=== PATIENT | female | born 2005 | race African-American/Black ===

== ENCOUNTER 2023-04-25 19:12 | Observation (INO) ==
[2023-04-25 19:48] VITALS: TEMP 98.1
--- NOTE | 2023-04-25 20:32 | Emergency Department Note ---
Impression & Plan Intentional overdose, Suicide attempt, SSRI overdose ED Provider Note HISTORY OF PRESENT ILLNESS: Patient is a 18-year-old female presenting after an intentional overdose in a suicide attempt. Patient reports that she took "about a half a bottle of Lexapro and hydroxyzine" around 1800 today. She states the medications are prescribed to her. On chart review, the patient is prescribed Lexapro 20 mg and hydroxyzine 50 mg. Patient is unsure of the quantity of pills, but states that the bottle was about group home filled. Denies any other coingestions. She did vomit prior to arrival in the ER. She states multiple social stressors including stressors at school that prompted her to try to end her life. Denies any auditory visual hallucinations. ROS: as above PHYSICAL EXAM: Constitutional: Patient appears in no acute distress. HENT: Head: Normocephalic and atraumatic. Eyes: EOMI, PERRL Mouth/Throat: Mucous membranes moist. Neck: Trachea midline. Neck supple. Cardiovascular: RRR, No murmurs, rubs or gallops. Intact distal pulses. Pulmonary/Chest: No respiratory distress. Breath sounds clear and equal bilaterally. No wheezes or rales. Abdominal: Abdomen soft, no tenderness, rebound or guarding. Musculoskeletal: No edema, tenderness or deformity noted. Skin: Warm and dry. No rash, erythema, pallor or cyanosis Psychiatric: Appropriate mood and affect for situation. Neurological: Alert but sleepy. CN II-XII grossly intact, moving all extremities equally and fully. MDM: - Vitals signs showed hypotension and tachycardia. - History obtained via patient. Patient presents with suicide attempt via unintentional overdose. Patient reports she intentionally ingested "half a bottle of Lexapro and hydroxyzine" around 1800 today. These medications are prescribed to her. She does not sure how many pills she ingested. Patient reports an episode of vomiting prior to arrival in the ER. She reports multiple social stressors and resources for more if she tried to kill self today. Denies any other coingestions. - Chronic conditions affecting care: Anxiety/depression - Differential diagnoses include, but are not limited to: Coingestions; dysrhythmia; electrolyte abnormality - Order placed for continuous cardiac monitoring. At this time, monitor showed rate of 94 bpm with normal sinus rhythm, per my interpretation. - External medical records reviewed. EMS run sheet reviewed. Patient was vitally stable in route. No medications were given prehospital. - EKG reviewed by myself showed normal sinus rhythm. Rate tachycardic at 105 bpm. QTc 367. No acute ischemic changes. - Laboratory workup interpreted by myself showed leukocytosis (WBC 12.98); stable electrolytes; negative acetaminophen/salicylate/alcohol levels; negative hCG - UA negative for infection - UDS negative - COVID negative - Patient given 1L NS in ER. - Discussed case with [facility] at 2030. Given that the patient is unable to quantify the amount of SSRI and hydroxyzine that she ingested, they recommended that she be cardiac monitored for 12 hours before she is medically cleared. - Discussion was had with social sciences professor about patient's case and need for admission - Hospitalist consulted for admission - [facility] 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 Beliefs That Will Affect Care: None Feels Safe at Home: Yes Gender Identity: Female Assistive Devices: Glasses Allergies Allergies Allergy/AdvReac Type Severity Reaction Status Date / Time No Known Allergies Allergy Unverified 03/16/23 19:13 Home Meds Home Medications Medication Instructions Recorded Confirmed escitalopram oxalate 20 mg tablet 20 mg PO QAM 04/25/23 04/25/23 hydroxyzine HCl 50 mg tablet 50 mg PO HS PRN insomnia or anxiety 04/25/23 04/25/23 nicotine 21 mg/24 hr daily 1 patch transdermal DAILY 04/25/23 04/25/23 transdermal patch Results & Data (ED) Vital Signs Vital Signs - 24 hr 04/25/23 19:41 04/25/23 20:30 04/25/23 20:37 Temperature 36.7 C Temperature Source Oral Pulse Rate 94 H 108 H 102 H Pulse Rate from SpO2 Sensor Respiratory Rate 18 16 Blood Pressure 94/57 L 120/77 Blood Pressure Mean 69 91 Pulse Oximetry 100 99 Oxygen Delivery Method Room Air Room Air Sepsis Recent Fever Within 48 Hours No Sepsis New/Unexplained Change in Mental Status N/A Sepsis Action Taken by Nursing No Action Required 04/25/23 21:00 04/25/23 21:30 04/25/23 21:50 Temperature Temperature Source Pulse Rate 84 88 108 H Pulse Rate from SpO2 Sensor 108 H Respiratory Rate 18 14 17 Blood Pressure 109/64 106/62 Blood Pressure Mean 79 76 Pulse Oximetry 97 97 100 Oxygen Delivery Method Room Air Room Air Sepsis Recent Fever Within 48 Hours Sepsis New/Unexplained Change in Mental Status Sepsis Action Taken by Nursing 04/25/23 22:08 04/25/23 22:10 04/25/23 22:13 Temperature Temperature Source Pulse Rate 94 H Pulse Rate from SpO2 Sensor Respiratory Rate Blood Pressure 117/77 Blood Pressure Mean 90 Pulse Oximetry 100 100 99 Oxygen Delivery Method Room Air Sepsis Recent Fever Within 48 Hours Sepsis New/Unexplained Change in Mental Status Sepsis Action Taken by Nursing 04/25/23 22:56 Temperature Temperature Source Pulse Rate 107 H Pulse Rate from SpO2 Sensor Respiratory Rate 16 Blood Pressure 115/73 Blood Pressure Mean 87 Pulse Oximetry 98 Oxygen Delivery Method Room Air Sepsis Recent Fever Within 48 Hours Sepsis New/Unexplained Change in Mental Status Sepsis Action Taken by Nursing Laboratory Data 04/25/23 20:37 04/25/23 20:37 Lab Results 04/25/23 04/25/23 04/25/23 Range/Units 20:37 20:45 21:44 WBC 12.98 H (4.8-10.8) K/ul RBC 4.23 (4.20-5.40) M/uL Hgb 12.7 (12.0-16.0) g/dl Hct 37.5 (37.0-47.0) % MCV 88.7 (80.0-100.0) fL MCH 30.0 (25.0-34.0) pg MCHC 33.9 (32.0-36.0) g/dL RDW Std Deviation 39.4 (36.4-46.3) fL RDW Coeff of Robert 12.1 (11.5-14.5) % Plt Count 493 H (130-400) K/uL MPV 8.9 L (9.4-12.4) fL Immature Gran % (Auto) 0.4 % Neut % (Auto) 83.0 % Lymph % (Auto) 12.3 % Hardeman % (Auto) 3.7 % Eos % (Auto) 0.3 % Baso % (Auto) 0.3 % Neut # (Auto) 10.77 H (1.40-6.50) K/uL Lymph # (Auto) 1.60 (1.20-3.40) K/uL Hardeman # (Auto) 0.48 (0.11-0.59) K/uL Eos # (Auto) 0.04 (0.00-0.50) K/uL Baso # (Auto) 0.04 (0.00-0.20) K/uL Immature Gran # (Auto) 0.05 (0.01-0.20) K/uL Sodium 137 (136-145) mmol/L Potassium 3.8 (3.5-5.1) mmol/L Chloride 104 (98-107) mmol/L Carbon Dioxide 25 (21-32) mmol/L Anion Gap 8 (3-11) BUN 12 (6-23) mg/dl Creatinine 0.91 (0.6-1.2) mg/dl Est Cr Clr Drug Dosing 88.7 ml/min Est GFR ( Amer) 105.3 ml/min Est GFR (Non-Af Amer) 90.8 ml/min BUN/Creatinine Ratio 13.2 (10-20) Glucose 103 H (70-99(Fasting)) mg/dl Calcium 9.2 (8.6-10.3) mg/dl Total Bilirubin 0.2 (0.2-1.0) mg/dl AST 18 (13-39) U/L ALT 9 (7-52) U/L Alkaline Phosphatase 46 (34-104) U/L Total Protein 8.0 (6.0-8.3) gm/dl Albumin 4.4 (3.4-5.0) gm/dl Globulin 3.6 (2.5-4.0) gm/dl Albumin/Globulin Ratio 1.2 (0.9-2) TSH 3.707 (0.300-4.500) uIu/ml Urine Color Yellow Urine Appearance Clear (Clear) Urine pH 6.0 (4.5-7.5) Ur Specific [place] 1.019 (1.000-1.030) Urine Protein Negative (Negative) Urine Glucose (UA) Negative (Negative) Urine Ketones Negative (Negative) Urine Blood Negative (Negative) Urine Nitrite Negative (Negative) Urine Bilirubin Negative (Negative) Urine Urobilinogen Negative (Negative) Ur Leukocyte Esterase Negative (Negative) POC Ur Test (NEG) Salicylates < 3.0 L (3.0-30) mg/dl Urine Opiates Screen Neg (Neg) Ur Methadone, Qual Neg (Neg) Acetaminophen < 3 L (10-30) ug/ml Urine Barbiturates Neg (Neg) Ur Phencyclidine (PCP) Neg (Neg) U Amphetamin/Meth Scrn Neg (Neg) MDMA (Ecstasy) Screen Neg (Neg) U Benzodiazepines Scrn Neg (Neg) Ur Cocaine Metabolite Neg (Neg) U Marijuana (THC) Screen Neg (Neg) Ethyl Alcohol mg/dL < 10.0 (<10.0) mg/dl SARS-CoV-2 (PCR) NEGATIVE (Negative) 04/25/23 Range/Units 21:47 WBC (4.8-10.8) K/ul RBC (4.20-5.40) M/uL Hgb (12.0-16.0) g/dl Hct (37.0-47.0) % MCV (80.0-100.0) fL MCH (25.0-34.0) pg MCHC (32.0-36.0) g/dL RDW Std Deviation (36.4-46.3) fL RDW Coeff of Robert (11.5-14.5) % Plt Count (130-400) K/uL MPV (9.4-12.4) fL Immature Gran % (Auto) % Neut % (Auto) % Lymph % (Auto) % Hardeman % (Auto) % Eos % (Auto) % Baso % (Auto) % Neut # (Auto) (1.40-6.50) K/uL Lymph # (Auto) (1.20-3.40) K/uL Hardeman # (Auto) (0.11-0.59) K/uL Eos # (Auto) (0.00-0.50) K/uL Baso # (Auto) (0.00-0.20) K/uL Immature Gran # (Auto) (0.01-0.20) K/uL Sodium (136-145) mmol/L Potassium (3.5-5.1) mmol/L Chloride (98-107) mmol/L Carbon Dioxide (21-32) mmol/L Anion Gap (3-11) BUN (6-23) mg/dl Creatinine (0.6-1.2) mg/dl Est Cr Clr Drug Dosing ml/min Est GFR ( Amer) ml/min Est GFR (Non-Af Amer) ml/min BUN/Creatinine Ratio (10-20) Glucose (70-99(Fasting)) mg/dl Calcium (8.6-10.3) mg/dl Total Bilirubin (0.2-1.0) mg/dl AST (13-39) U/L ALT (7-52) U/L Alkaline Phosphatase (34-104) U/L Total Protein (6.0-8.3) gm/dl Albumin (3.4-5.0) gm/dl Globulin (2.5-4.0) gm/dl Albumin/Globulin Ratio (0.9-2) TSH (0.300-4.500) uIu/ml Urine Color Urine Appearance (Clear) Urine pH (4.5-7.5) Ur Specific [place] (1.000-1.030) Urine Protein (Negative) Urine Glucose (UA) (Negative) Urine Ketones (Negative) Urine Blood (Negative) Urine Nitrite (Negative) Urine Bilirubin (Negative) Urine Urobilinogen (Negative) Ur Leukocyte Esterase (Negative) POC Ur Test NEG (NEG) Salicylates (3.0-30) mg/dl Urine Opiates Screen (Neg) Ur Methadone, Qual (Neg) Acetaminophen (10-30) ug/ml Urine Barbiturates (Neg) Ur Phencyclidine (PCP) (Neg) U Amphetamin/Meth Scrn (Neg) MDMA (Ecstasy) Screen (Neg) U Benzodiazepines Scrn (Neg) Ur Cocaine Metabolite (Neg) U Marijuana (THC) Screen (Neg) Ethyl Alcohol mg/dL (<10.0) mg/dl SARS-CoV-2 (PCR) (Negative) Administered Medications Discontinued Medications Sodium Chloride (Nss) 1,000 mls @ 999 mls/hr IV .[id number] ONE Stop: 04/25/23 21:33 Last Infusion: 04/25/23 22:02 Dose: Infused Documented By: Admin: 04/25/23 20:43 Dose: 999 mls/hr Documented By: [facility] Discharge Plan Visit Data Chief Complaint: Overdose (Intentional) ED Provider: Shanel Padron Discharge Problem: Intentional overdose, Suicide attempt, SSRI overdose Forms Stand Alone Forms: My [facility], Suicide Prevention Resources Prescriptions Prescriptions: No Action hydroxyzine HCl 50 mg tablet 50 mg PO HS PRN (Reason: insomnia or anxiety) nicotine 21 mg/24 hr patch 24 hour 1 patch transdermal DAILY escitalopram oxalate 20 mg tablet 20 mg PO QAM Referrals Referrals: PCP,NO [Primary Care Provider] -
[2023-04-25] MEDS ORDERED: SODIUM CHLORIDE 0.9% 1,000 ML IV ONE (20:33)
[2023-04-25 20:54] LABS: Basophils # (auto) 0.04 K/uL (0.00-0.20); Basophils % (auto) 0.3 %; Eosinophils # (auto) 0.04 K/uL (0.00-0.50); Eosinophils % (auto) 0.3 %; Hematocrit (blood only) 37.5 % (37.0-47.0); Hemoglobin 12.7 g/dl (12.0-16.0); Immature Granulocytes # (auto) 0.05 K/uL (0.01-0.20); Immature Granulocytes % (auto) 0.4 %; Lymphocytes % (auto) 12.3 %; Mean Corpuscular Hgb Conc 33.9 g/dL (32.0-36.0); Mean Corpuscular Volume 88.7 fL (80.0-100.0); Mean Platelet Volume 8.9 fL (9.4-12.4); Monocytes # (auto) 0.48 K/uL (0.11-0.59); Monocytes % (auto) 3.7 %; Neutrophils # (auto) 10.77 K/uL (1.40-6.50); Platelet Count 493 K/uL (130-400); RDW Coefficient of Variation 12.1 % (11.5-14.5); RDW Standard Deviation 39.4 fL (36.4-46.3); Red Blood Count 4.23 M/uL (4.20-5.40); White Blood Count 12.98 K/ul (4.8-10.8)
[2023-04-25 21:11] LABS: Albumin Globulin Ratio 1.2 (0.9-2); Albumin Level 4.4 gm/dl (3.4-5.0); BUN Creatinine Ratio 13.2 (10-20); Bilirubin,Total 0.2 mg/dl (0.2-1.0); Calcium 9.2 mg/dl (8.6-10.3); Creatinine Clr Calc Pharmacy 88.7 ml/min; Est GFR (African American) 105.3 ml/min; Est GFR (Non-African American) 90.8 ml/min; Globulin 3.6 gm/dl (2.5-4.0); Potassium 3.8 mmol/L (3.5-5.1)
[2023-04-25 21:24] LABS: Thyroid Stimulating Hormone 3.707 uIu/ml (0.300-4.500)
[2023-04-25 21:29] LABS: Acetaminophen < 3 ug/ml (10-30); Salicylate < 3.0 mg/dl (3.0-30)
[2023-04-25 21:59] LABS: Appearance Urine Clear (Clear); Bilirubin Urine Negative (Negative); Blood Urine Negative (Negative); Color Urine Yellow; Glucose Urine UA Negative (Negative); Ketones Urine Negative (Negative); Leukocyte Esterase Urine Negative (Negative); Nitrite Urine Negative (Negative); Protein Urine Negative (Negative); Specific Gravity Urine 1.019 (1.000-1.030); Urobilinogen Urine Negative (Negative)
[2023-04-25 22:30] LABS: Amphetamines+Metham, Urine Neg (Neg); Barbiturates, Urine Neg (Neg); Benzodiazepine, Urine Neg (Neg); Cocaine, Urine Neg (Neg); MDMA (Ecstacy), Urine Neg (Neg); Methadone, Urine Neg (Neg); Opiate, Urine Neg (Neg); Phencyclidine, Urine Neg (Neg)
--- NOTE | 2023-04-26 00:11 | History & Physical Report ---
Date of Service April 26, 2023 Assessment & Plan (1) SSRI overdose: Plan: 18 F with PMH major depressive disorder (recent U stent 2022) on Lexapro, as needed hydroxyzine who presented to the ED after intentional ingestion of Lexapro and Vistaril pills. Now stable on cardiac telemetry monitoring. Intentional SSRI overdose/hydroxyzine overdose -Time of ingestion ~6 PM. Total number of pills ingested unknown. Per patient on admission, "about 7 of each" referring to home medications (Lexapro 20 mg, Vistaril 50 mg). -NSR on EKG. sinus tachycardia on exam. Mild leukocytosis. No other abnormalities on labs. -[facility] in [place] aware. Recommended continuous cardiac monitoring x12 hours. -Mom aware and en route from [place]. Patient gave verbal consent on admission to provide medical updates to mom. Mom (Li [phone]). * Admit to med telemetry for continuous cardiac monitoring, as recommended. * One-to-one observation * Suicide checks per protocol * Lactated Ringers @125 mL/h * EKG with chest pain as needed * As needed IV Zofran for nausea Suicide attempt/major depressive disorder -Currently struggling in school, which is her main stressor. Patient is biology major [employer] -Recent stay in [facility] in February ("specific and risky suicide plan"). Lexapro increased to 20 mg at discharge from 10 mg. -Unclear who current prescriber is. * Psychiatry consult placed for evaluation, med management as indicated * Home Lexapro, hydroxyzine held on admission. Will defer decision to restart to psychiatry, primary care team. Current everyday smoker -Uses on nicotine patch daily at home. * Continue TD nicotine patch. Code: Full code Dispo: Med-Surg telemetry FEN/GI: LR @maintenance rate. Regular (safe tray) DVT Prophylaxis: PT/OT: No Consults: Psychiatry Case Management: Yes (2) Intentional overdose: (3) Suicide attempt: (4) Major depressive disorder, recurrent, moderate: (5) Current smoker: History of Present Illness Primary Care Provider: NO PCP Tali is a 18-year-old woman with past medical history of major depressive disorder ([facility] sustained for SI in February 2023) who presents to the emergency room after an intentional pill overdose. She reports taking "more than 7 of each" of Lexapro and hydroxyzine at approximately 6 PM this evening. Per [facility] visit note, patient on Lexapro 20 mg, hydroxyzine 50 mg as needed. After consumption of pills, she called 911 and was brought to the emergency room. On admission ROS + nausea, agitation, fatigue, as well as emesis prior to arrival. However, she denies headache, chest pain, heart palpitations, shortness of breath, vision changes, abdominal pain, or hallucinations. In the ED, vitals were notable for mild tachycardia to the 100s. Labs were notable for WBC count of 12.98. Rest of CBC was normal. Electrolytes were stable, within normal limits. Talk screen was negative for acetaminophen, ethanol, and salicylate. She received a 1 L normal saline bolus. ED physician discussed case with [facility] Control [facility] they recommended cardiac monitoring x12 hours before she can be medically cleared. Hospitalist service was then consulted for admission. On admission, ROS + nausea, agitation, fatigue, and an episode of emesis prior to arrival. However, she denies headache, chest pain, heart palpitations, shortness of breath, vision changes, abdominal pain, or hallucinations (audio or visual). Allergies Allergy/AdvReac Type Severity Reaction Status Date / Time No Known Allergies Allergy Unverified 03/16/23 19:13 Home Medications Medication Instructions Recorded Confirmed Type escitalopram oxalate 20 mg tablet 20 mg PO QAM 04/25/23 04/25/23 History hydroxyzine HCl 50 mg tablet 50 mg PO HS PRN insomnia or anxiety 04/25/23 04/25/23 History nicotine 21 mg/24 hr daily 1 patch transdermal DAILY 04/25/23 04/25/23 History transdermal patch Past Med/Surg History Medical History Major depressive disorder, recurrent, moderate Social History Smoking Status: Current every day smoker Tobacco Type: E-cigarettes / Vaping Second Hand Exposure: No; Do You Dip or Chew Tobacco: No; Tobacco Cessation Education Requested by Patient: No Hx Alcohol Use: Yes Hx Substance Use: No Preferred Language: Mohawk Communication Ability: Effective Accounts Specialist Required: No Beliefs That Will Affect Care: Spiritual Current Living Situation: Other Current Living Situation Comment: apatment with 1 roomate Other Information That Helps Us Care for You: No Feels Safe at Home: Yes Safety Concerns: Feels Safe At This Time Gender Identity: Female Assistive Devices: Glasses Review of Systems Review of Systems: All systems reviewed & are unremarkable except as noted in HPI & below Physical Exam Physical Exam: General: Drowsy-appearing, but otherwise alert, interactive woman in no acute distress. HEENT: Normocephalic, atraumatic. EOM intact. Good conjugate gaze. Nares patent. CV: Tachycardic. Regular rhythm. No murmurs gallops or rubs. Respiratory: Moderate respiratory effort. Lungs clear to auscultation bilaterally. No crackles, rhonchi, or wheezes. Abdomen: Soft, nondistended abdomen. No bruits heard on auscultation. No tenderness to deep palpation. Extremities: No pedal edema. Neuro: Bilateral lower extremity tremor. Brisk patellar reflex. Psych: Flat affect. Mood congruent with affect. Skin: Clean, dry, and intact. No rashes, bruises, or erythema. Results & Data Results & Data Vital Signs (Past 12 Hours) Vital Signs Temp Pulse Resp BP Pulse Ox O2 Del Method 04/25/23 23:30 111 H 18 117/74 98 Room Air 04/25/23 23:00 98 H 16 128/70 98 Room Air 04/25/23 22:56 107 H 16 115/73 98 Room Air 04/25/23 22:13 99 Room Air 04/25/23 22:10 94 H 117/77 100 04/25/23 22:08 100 04/25/23 21:50 108 H 17 100 04/25/23 21:30 88 14 106/62 97 Room Air 04/25/23 21:00 84 18 109/64 97 Room Air 04/25/23 20:37 102 H 04/25/23 20:30 108 H 16 120/77 99 Room Air 04/25/23 19:41 36.7 C 94 H 18 94/57 L 100 Room Air Supervising Physician Co-Signing Physician Notes Attending addendum: I have physically seen this patient, have supervised the medical residents activities, and agree with the H&P unless as otherwise noted. Assessment and Plan: Intentional overdose/suicide attempt- Patient took excessive amounts of Lexapro and hydroxyzine The patient will be admitted to telemetry for serial cardiac enzymes, serial EKG's, cardiac rhythm monitoring Heart rate and rhythm within normal limits in the ED One-to-one observation Suicide checks per protocol LR at 125 mils per hour Consult psychiatry Tobacco use disorder- Nicotine patch Resident Activity Tracking Resident Involvement: Resident Care Provided Care Provided: Adult Hospital Medicine
[2023-04-26] MEDS ORDERED: LACTATED RINGER'S 1,000 ML IV SCH (00:46)
[2023-04-26] MEDS ORDERED: ONDANSETRON INJ 2 MG/ML 2 ML VIAL IV PRN (00:46)
[2023-04-26 07:55] LABS: Hemoglobin 11.4 g/dl (12.0-16.0); Mean Corpuscular Hemoglobin 30.6 pg (25.0-34.0); Mean Corpuscular Hgb Conc 34.5 g/dL (32.0-36.0); Mean Corpuscular Volume 88.5 fL (80.0-100.0); Mean Platelet Volume 8.9 fL (9.4-12.4); Platelet Count 460 K/uL (130-400); RDW Coefficient of Variation 12.3 % (11.5-14.5); RDW Standard Deviation 39.5 fL (36.4-46.3); Red Blood Count 3.73 M/uL (4.20-5.40); White Blood Count 7.98 K/ul (4.8-10.8)
[2023-04-26 08:11] LABS: BUN Creatinine Ratio 7.8 (10-20); Calcium 8.7 mg/dl (8.6-10.3); Creatinine Clr Calc Pharmacy 89.7 ml/min; Est GFR (African American) 106.7 ml/min; Phosphorus 4.4 mg/dl (2.5-4.9); Potassium 3.9 mmol/L (3.5-5.1)
[2023-04-26] MEDS: NICOTINE 21 MG/24 HR TDSY TD SCH (08:17)
[2023-04-26] MEDS: LACTATED RINGER'S 1,000 ML IV SCH ×2 (09:45→23:31)
[2023-04-26] MEDS ORDERED: MAGNESIUM SULFATE / D5W 1 GM/100 ML BAG IV ONE (12:45)
--- NOTE | 2023-04-26 13:10 | Hospitalist Progress Note ---
Date of Service April 26, 2023 Assessment & Plan (1) SSRI overdose: Plan: 18 F with PMH major depressive disorder (recent BHU stent 2022) on Lexapro, as needed hydroxyzine who presented to the ED after intentional ingestion of Lexapro and Vistaril pills. Now stable on cardiac telemetry monitoring. Intentional SSRI overdose/hydroxyzine overdose Time of ingestion ~6 PM 04/25. Total number of pills ingested unknown. Per patient on admission, "about 7 of each" referring to home medications (Lexapro 20 mg, Vistaril 50 mg). NSR on EKG. sinus tachycardia on exam. Mild leukocytosis. No other abnormalities on labs. Poison Control Center in [place] aware. Recommended continuous cardiac monitoring x12 hours. Mom aware and en route from [place]. Patient gave verbal consent on admission to provide medical updates to mom. Mom (Li [phone]). Admit to med/tele Given 1L on admission, does not appear any further ordered EKG w/ CP, antiemetics ordered 04/26 - Eval in ER, A7, resting in bed. Not much PO intake but did order Chick-nayely-A. She reports taking at LEAST 20 of each her lexapro and visaril to note (on admission reported 7) - IVF ordered @ 80cc/hr this morning as no IVF ordered, increased to 100cc/hr this afternoon - Poison control following, repeated EKG this morning w/ prolonged QTC and placed orders for repeat EKG q6h w/ electrolyte replacement as needed Will place zofran on hold, can order alternative agent as needed, will add tums for indigestion for now prn - Ordered 1gm IV mag stat for twitching reported but not on exam, repeat BMP/mag NOW/electrolyte replacement as indicated - Bladder scan ordered to see if any retention w/ anticholinergic properties of vistaril - will continue to monitor on telemetry, repeat labs/electrolyte replacement as needed and serial EKGs as outlined - 302 petition on chart. Psychiatry following/likely inpatient treatment recommended (2) Intentional overdose: Plan: Suicide attempt/major depressive disorder -Currently struggling in school, which is her main stressor. 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 -Recent stay in [facility] in February ("specific and risky suicide plan"). Lexapro increased to 20 mg at discharge from 10 mg. -Unclear who current prescriber is. * Psychiatry consult placed for evaluation, med management as indicated -- 302 petition on chart at present and discussed with patient * Home Lexapro, hydroxyzine held on admission. Psychiatry consult pending but would NOT resume home medications at present --> defer ongoing management to psychiatry regarding her anxiety/depression Monitoring on telemetry, EKG monitoring and electrolyte replacement as indicated above, poison control contacted and monitoring (3) Suicide attempt: Plan: SSRI/OD as above 2nd to suicide attempt. psych on consult/302 on chart (4) Major depressive disorder, recurrent, moderate: Plan: defer ongoing management to psychiatry depressed mood, stress from school, legal troubles (5) Current smoker: Plan: Current everyday smoker Uses on nicotine patch daily at home. * Continue TD nicotine patch. Plan continued inpatient stay Admission and Anticipated Discharge Date Admission Date: April 25, 2023 Subjective Eval this afternoon after lunch. resting in bed, depressed affect but no HI/SI ideation. Discussed 302 on chart, she reports was seen by Iker from [facility] this morning. She notes she took ~20+ of each the vistatril and lexapro, some twitching to mu scles but reports started prior to admission. 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 Discussed q6h EKG and monitoring of electrolytes replacement. No fever/chills, chest pain , shortness of breath. Denies urinary retention/feeling like not emptying her bladder. Will continue to montior on tele -- HRs to 90s but denies any palpitations or sensations. Physical Exam Physical Exam: 18yo female resting in bed upon entry, NAD, flat affect, chick nayely-a bag at bedside untouched HEENT: head atraumatic, normocephalic, mmm, trachea midline Resp: even/unlabored, no w/c/r, on room air CV: regular rhythm (rates 80-100s on monitor, presently low 100s), no significant m/r/g GI: +BS, soft/nt : no bundy MSK/Neuro/Psych: alert/oriented, following commands, no facial droop/slurred speech, strength equal bilaterally no active SI/HI, flat/depressed affect noted Results & Data Results & Data Vital Signs (Past 12 Hours) Vital Signs Pulse Pulse Resp BP BP Pulse Ox O2 Del Method 04/26/23 09:30 82 14 99/68 L 100 04/26/23 09:00 90 27 H 99/68 L 98 04/26/23 08:29 88 18 114/91 100 04/26/23 08:17 73 16 117/74 100 Room Air 04/26/23 08:00 96 H 18 117/74 97 04/26/23 07:30 83 20 114/74 100 Room Air 04/26/23 07:00 72 17 110/72 100 Room Air 04/26/23 06:55 76 04/26/23 05:15 75 12 113/75 100 Room Air 04/26/23 02:31 71 12 105/68 97 Room Air 04/26/23 02:00 75 12 99/64 L 97 Room Air 04/26/23 01:30 75 12 92/66 L 98 Room Air Laboratory Results 04/26/23 04/25/23 04/25/23 Range/Units 07:26 21:47 21:44 WBC 7.98 (4.8-10.8) K/ul RBC 3.73 L (4.20-5.40) M/uL Hgb 11.4 L (12.0-16.0) g/dl Hct 33.0 L (37.0-47.0) % MCV 88.5 (80.0-100.0) fL MCH 30.6 (25.0-34.0) pg MCHC 34.5 (32.0-36.0) g/dL RDW Std Deviation 39.5 (36.4-46.3) fL RDW Coeff of Robert 12.3 (11.5-14.5) % Plt Count 460 H (130-400) K/uL MPV 8.9 L (9.4-12.4) fL Immature Gran % (Auto) % Neut % (Auto) % Lymph % (Auto) % [place] % (Auto) % Eos % (Auto) % Baso % (Auto) % Neut # (Auto) (1.40-6.50) K/uL Lymph # (Auto) (1.20-3.40) K/uL [place] # (Auto) (0.11-0.59) K/uL Eos # (Auto) (0.00-0.50) K/uL Baso # (Auto) (0.00-0.20) K/uL Immature Gran # (Auto) (0.01-0.20) K/uL Sodium 140 (136-145) mmol/L Potassium 3.9 (3.5-5.1) mmol/L Chloride 108 H (98-107) mmol/L Carbon Dioxide 28 (21-32) mmol/L Anion Gap 4 (3-11) BUN 7 (6-23) mg/dl Creatinine 0.90 (0.6-1.2) mg/dl Est Cr Clr Drug Dosing 89.7 ml/min Est GFR ( Amer) 106.7 ml/min Est GFR (Non-Af Amer) 92.0 ml/min BUN/Creatinine Ratio 7.8 L (10-20) Glucose 85 (70-99(Fasting)) mg/dl Calcium 8.7 (8.6-10.3) mg/dl Phosphorus 4.4 (2.5-4.9) mg/dl Magnesium 2.0 (1.7-2.4) mg/dl Total Bilirubin (0.2-1.0) mg/dl AST (13-39) U/L ALT (7-52) U/L Alkaline Phosphatase (34-104) U/L Total Protein (6.0-8.3) gm/dl Albumin (3.4-5.0) gm/dl Globulin (2.5-4.0) gm/dl Albumin/Globulin Ratio (0.9-2) TSH (0.300-4.500) uIu/ml Urine Color Yellow Urine Appearance Clear (Clear) Urine pH 6.0 (4.5-7.5) Ur Specific [place] 1.019 (1.000-1.030) Urine Protein Negative (Negative) Urine Glucose (UA) Negative (Negative) Urine Ketones Negative (Negative) Urine Blood Negative (Negative) Urine Nitrite Negative (Negative) Urine Bilirubin Negative (Negative) Urine Urobilinogen Negative (Negative) Ur Leukocyte Esterase Negative (Negative) POC Ur Test NEG (NEG) Salicylates (3.0-30) mg/dl Urine Opiates Screen Neg (Neg) Ur Methadone, Qual Neg (Neg) Acetaminophen (10-30) ug/ml Urine Barbiturates Neg (Neg) Ur Phencyclidine (PCP) Neg (Neg) U Amphetamin/Meth Scrn Neg (Neg) MDMA (Ecstasy) Screen Neg (Neg) U Benzodiazepines Scrn Neg (Neg) Ur Cocaine Metabolite Neg (Neg) U Marijuana (THC) Screen Neg (Neg) Ethyl Alcohol mg/dL (<10.0) mg/dl SARS-CoV-2 (PCR) (Negative) 04/25/23 04/25/23 Range/Units 20:45 20:37 WBC 12.98 H (4.8-10.8) K/ul RBC 4.23 (4.20-5.40) M/uL Hgb 12.7 (12.0-16.0) g/dl Hct 37.5 (37.0-47.0) % MCV 88.7 (80.0-100.0) fL MCH 30.0 (25.0-34.0) pg MCHC 33.9 (32.0-36.0) g/dL RDW Std Deviation 39.4 (36.4-46.3) fL RDW Coeff of Robert 12.1 (11.5-14.5) % Plt Count 493 H (130-400) K/uL MPV 8.9 L (9.4-12.4) fL Immature Gran % (Auto) 0.4 % Neut % (Auto) 83.0 % Lymph % (Auto) 12.3 % Canadian % (Auto) 3.7 % Eos % (Auto) 0.3 % Baso % (Auto) 0.3 % Neut # (Auto) 10.77 H (1.40-6.50) K/uL Lymph # (Auto) 1.60 (1.20-3.40) K/uL [place] # (Auto) 0.48 (0.11-0.59) K/uL Eos # (Auto) 0.04 (0.00-0.50) K/uL Baso # (Auto) 0.04 (0.00-0.20) K/uL Immature Gran # (Auto) 0.05 (0.01-0.20) K/uL Sodium 137 (136-145) mmol/L Potassium 3.8 (3.5-5.1) mmol/L Chloride 104 (98-107) mmol/L Carbon Dioxide 25 (21-32) mmol/L Anion Gap 8 (3-11) BUN 12 (6-23) mg/dl Creatinine 0.91 (0.6-1.2) mg/dl Est Cr Clr Drug Dosing 88.7 ml/min Est GFR ( Amer) 105.3 ml/min Est GFR (Non-Af Amer) 90.8 ml/min BUN/Creatinine Ratio 13.2 (10-20) Glucose 103 H (70-99(Fasting)) mg/dl Calcium 9.2 (8.6-10.3) mg/dl Phosphorus (2.5-4.9) mg/dl Magnesium (1.7-2.4) mg/dl Total Bilirubin 0.2 (0.2-1.0) mg/dl AST 18 (13-39) U/L ALT 9 (7-52) U/L Alkaline Phosphatase 46 (34-104) U/L Total Protein 8.0 (6.0-8.3) gm/dl Albumin 4.4 (3.4-5.0) gm/dl Globulin 3.6 (2.5-4.0) gm/dl Albumin/Globulin Ratio 1.2 (0.9-2) TSH 3.707 (0.300-4.500) uIu/ml Urine Color Urine Appearance (Clear) Urine pH (4.5-7.5) Ur Specific [place] (1.000-1.030) Urine Protein (Negative) Urine Glucose (UA) (Negative) Urine Ketones (Negative) Urine Blood (Negative) Urine Nitrite (Negative) Urine Bilirubin (Negative) Urine Urobilinogen (Negative) Ur Leukocyte Esterase (Negative) POC Ur Test (NEG) Salicylates < 3.0 L (3.0-30) mg/dl Urine Opiates Screen (Neg) Ur Methadone, Qual (Neg) Acetaminophen < 3 L (10-30) ug/ml Urine Barbiturates (Neg) Ur Phencyclidine (PCP) (Neg) U Amphetamin/Meth Scrn (Neg) MDMA (Ecstasy) Screen (Neg) U Benzodiazepines Scrn (Neg) Ur Cocaine Metabolite (Neg) U Marijuana (THC) Screen (Neg) Ethyl Alcohol mg/dL < 10.0 (<10.0) mg/dl SARS-CoV-2 (PCR) NEGATIVE (Negative) PG Care Time/CCT Total # of Minutes Spent Total Time Spent with Patient: Total time spent is greater than 50% in coordination of care (as documented) at patient's floor/unit and/or counseling patient: Coding Level of Care Code 83251 SUB INP/OBS CARE 350MIN Diagnoses SSRI overdose T43.221A Intentional overdose T50.902A Suicide attempt T14.91XA Major depressive disorder, recurrent, moderate F33.1 Current smoker F17.200
[2023-04-26] MEDS ORDERED: CALCIUM CARBONATE 500 MG CHEWABLE TAB PO PRN (13:30)
--- NOTE | 2023-04-26 13:35 | Psychiatric Consultation ---
Date of Consultation April 26, 2023 Impression / Recommendations Impression 18 yo female with impulsive ingestion of prescription medications as a suicide attempt s/p perceived academic failure, hx of recent inpatient hospitalization for SI. (1) Major depressive disorder, recurrent, moderate: (2) Intentional overdose: (3) Suicide attempt: Plan remain on 1 on 1 obs pending transition to an inpatient psychiatry unit. patient is currently 201 but would pursue a warrant if should attempt to leave AMA agree with hold psych meds at this time CPT Code Overall, I spent a total of 59 minutes with this case, including review of chart, direct evaluation of the patient, coordination with nursing,coordination of care with hospitalist service, risk assessment, and documentation. 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 Patient was recently admitted to on a 302 involuntary commitment on 03/16/23 for SI and there is a 302 petitioning statement on her chart. Chief Complaint ingestion of approximately 20 of Vistaril and Lexapro. History of Present Illness She has a history of worsening SI in February after stopping her Lexapro resulting in plan to OD on OTC eye drops. She discussed her SI with [facility] and was referred for her first admission. Since that time she has been taking her medication as prescribed up to the OD and met with her crisis peer support. She stated that she is "grateful" that she sought care and "regrets" the OD in the sense it caused stress for her family. 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 Overall she now finds family supportive. She is cooperative with IVF and is less tired/confused though did relate some difficulty emptying bladder. She does have some consequences (dorm suspension?) following an incident in [facility] where she started school and put bleach in her roommates toiletries. Past Psychiatric History Current Psychiatric Diagnosis: Unspecified mood disorder History of Previous Suicide Attempt: Yes Allergies Allergy/AdvReac Type Severity Reaction Status Date / Time No Known Allergies Allergy Unverified 03/16/23 19:13 Home Medications Medication Instructions Recorded Confirmed Type escitalopram oxalate 20 mg tablet 20 mg PO QAM 04/25/23 04/25/23 History hydroxyzine HCl 50 mg tablet 50 mg PO HS PRN insomnia or anxiety 04/25/23 04/25/23 History nicotine 21 mg/24 hr daily 1 patch transdermal DAILY 04/25/23 04/25/23 History transdermal patch Patient History Medical History Major depressive disorder, recurrent, moderate Social History Smoking Status: Current every day smoker Tobacco Type: E-cigarettes / Vaping Second Hand Exposure: No; Do You Dip or Chew Tobacco: No; Tobacco Cessation Education Requested by Patient: No Hx Alcohol Use: Yes Hx Substance Use: No Preferred Language: Slovenian Communication Ability: Effective Lemon Grower Required: No Beliefs That Will Affect Care: Spiritual Current Living Situation: Other Current Living Situation Comment: apatment with 1 roomate Other Information That Helps Us Care for You: No Feels Safe at Home: Yes Safety Concerns: Feels Safe At This Time Gender Identity: Female Assistive Devices: Glasses Physical Exam Psychiatric: Orientation: alert and oriented x 3 Apperance: appropriately groomed Eye Contact: good eye contact Motor Behavior: no abnormal motor movements Speech: normal rate/rhythm/volume of speech Affect: + depressed affect Mood: + depressed mood Thought Process: goal directed thought process Thought Content: reality based without delusions Suicidal Thoughts: denies suicidal thoughts Homicidal Thoughts: denies homicidal thoughts Hallucinations: no auditory hallucinations and no visual hallucinations Cognition: attention grossly intact and language grossly intact Estimated Intelligence: consistent with education level Insight: + limited insight Judgment: + limited judgement Vital Signs (Past 24 Hours): Last Vital Signs Temp 36.7 C 04/25/23 19:41 Pulse 82 04/26/23 09:30 Resp 14 04/26/23 09:30 BP 99/68 L 04/26/23 09:30 Pulse Ox 100 04/26/23 09:30 O2 Del Method Room Air 04/26/23 08:17 Review of Systems All systems reviewed & are unremarkable except as noted in HPI & below Results & Data (PSY) Laboratory Results 04/26/23 04/25/23 04/25/23 Range/Units 07:26 21:47 21:44 WBC 7.98 (4.8-10.8) K/ul RBC 3.73 L (4.20-5.40) M/uL Hgb 11.4 L (12.0-16.0) g/dl Hct 33.0 L (37.0-47.0) % MCV 88.5 (80.0-100.0) fL MCH 30.6 (25.0-34.0) pg MCHC 34.5 (32.0-36.0) g/dL RDW Std Deviation 39.5 (36.4-46.3) fL RDW Coeff of Robert 12.3 (11.5-14.5) % Plt Count 460 H (130-400) K/uL MPV 8.9 L (9.4-12.4) fL Immature Gran % (Auto) % Neut % (Auto) % Lymph % (Auto) % [place] % (Auto) % Eos % (Auto) % Baso % (Auto) % Neut # (Auto) (1.40-6.50) K/uL Lymph # (Auto) (1.20-3.40) K/uL [place] # (Auto) (0.11-0.59) K/uL Eos # (Auto) (0.00-0.50) K/uL Baso # (Auto) (0.00-0.20) K/uL Immature Gran # (Auto) (0.01-0.20) K/uL Sodium 140 (136-145) mmol/L Potassium 3.9 (3.5-5.1) mmol/L Chloride 108 H (98-107) mmol/L Carbon Dioxide 28 (21-32) mmol/L Anion Gap 4 (3-11) BUN 7 (6-23) mg/dl Creatinine 0.90 (0.6-1.2) mg/dl Est Cr Clr Drug Dosing 89.7 ml/min Est GFR ( Amer) 106.7 ml/min Est GFR (Non-Af Amer) 92.0 ml/min BUN/Creatinine Ratio 7.8 L (10-20) Glucose 85 (70-99(Fasting)) mg/dl Calcium 8.7 (8.6-10.3) mg/dl Phosphorus 4.4 (2.5-4.9) mg/dl Magnesium 2.0 (1.7-2.4) mg/dl Total Bilirubin (0.2-1.0) mg/dl AST (13-39) U/L ALT (7-52) U/L Alkaline Phosphatase (34-104) U/L Total Protein (6.0-8.3) gm/dl Albumin (3.4-5.0) gm/dl Globulin (2.5-4.0) gm/dl Albumin/Globulin Ratio (0.9-2) TSH (0.300-4.500) uIu/ml Urine Color Yellow Urine Appearance Clear (Clear) Urine pH 6.0 (4.5-7.5) Ur Specific [place] 1.019 (1.000-1.030) Urine Protein Negative (Negative) Urine Glucose (UA) Negative (Negative) Urine Ketones Negative (Negative) Urine Blood Negative (Negative) Urine Nitrite Negative (Negative) Urine Bilirubin Negative (Negative) Urine Urobilinogen Negative (Negative) Ur Leukocyte Esterase Negative (Negative) POC Ur Test NEG (NEG) Salicylates (3.0-30) mg/dl Urine Opiates Screen Neg (Neg) Ur Methadone, Qual Neg (Neg) Acetaminophen (10-30) ug/ml Urine Barbiturates Neg (Neg) Ur Phencyclidine (PCP) Neg (Neg) U Amphetamin/Meth Scrn Neg (Neg) MDMA (Ecstasy) Screen Neg (Neg) U Benzodiazepines Scrn Neg (Neg) Ur Cocaine Metabolite Neg (Neg) U Marijuana (THC) Screen Neg (Neg) Ethyl Alcohol mg/dL (<10.0) mg/dl SARS-CoV-2 (PCR) (Negative) 04/25/23 04/25/23 Range/Units 20:45 20:37 WBC 12.98 H (4.8-10.8) K/ul RBC 4.23 (4.20-5.40) M/uL Hgb 12.7 (12.0-16.0) g/dl Hct 37.5 (37.0-47.0) % MCV 88.7 (80.0-100.0) fL MCH 30.0 (25.0-34.0) pg MCHC 33.9 (32.0-36.0) g/dL RDW Std Deviation 39.4 (36.4-46.3) fL RDW Coeff of Robert 12.1 (11.5-14.5) % Plt Count 493 H (130-400) K/uL MPV 8.9 L (9.4-12.4) fL Immature Gran % (Auto) 0.4 % Neut % (Auto) 83.0 % Lymph % (Auto) 12.3 % [place] % (Auto) 3.7 % Eos % (Auto) 0.3 % Baso % (Auto) 0.3 % Neut # (Auto) 10.77 H (1.40-6.50) K/uL Lymph # (Auto) 1.60 (1.20-3.40) K/uL [place] # (Auto) 0.48 (0.11-0.59) K/uL Eos # (Auto) 0.04 (0.00-0.50) K/uL Baso # (Auto) 0.04 (0.00-0.20) K/uL Immature Gran # (Auto) 0.05 (0.01-0.20) K/uL Sodium 137 (136-145) mmol/L Potassium 3.8 (3.5-5.1) mmol/L Chloride 104 (98-107) mmol/L Carbon Dioxide 25 (21-32) mmol/L Anion Gap 8 (3-11) BUN 12 (6-23) mg/dl Creatinine 0.91 (0.6-1.2) mg/dl Est Cr Clr Drug Dosing 88.7 ml/min Est GFR ( Amer) 105.3 ml/min Est GFR (Non-Af Amer) 90.8 ml/min BUN/Creatinine Ratio 13.2 (10-20) Glucose 103 H (70-99(Fasting)) mg/dl Calcium 9.2 (8.6-10.3) mg/dl Phosphorus (2.5-4.9) mg/dl Magnesium (1.7-2.4) mg/dl Total Bilirubin 0.2 (0.2-1.0) mg/dl AST 18 (13-39) U/L ALT 9 (7-52) U/L Alkaline Phosphatase 46 (34-104) U/L Total Protein 8.0 (6.0-8.3) gm/dl Albumin 4.4 (3.4-5.0) gm/dl Globulin 3.6 (2.5-4.0) gm/dl Albumin/Globulin Ratio 1.2 (0.9-2) TSH 3.707 (0.300-4.500) uIu/ml Urine Color Urine Appearance (Clear) Urine pH (4.5-7.5) Ur Specific [place] (1.000-1.030) Urine Protein (Negative) Urine Glucose (UA) (Negative) Urine Ketones (Negative) Urine Blood (Negative) Urine Nitrite (Negative) Urine Bilirubin (Negative) Urine Urobilinogen (Negative) Ur Leukocyte Esterase (Negative) POC Ur Test (NEG) Salicylates < 3.0 L (3.0-30) mg/dl Urine Opiates Screen (Neg) Ur Methadone, Qual (Neg) Acetaminophen < 3 L (10-30) ug/ml Urine Barbiturates (Neg) Ur Phencyclidine (PCP) (Neg) U Amphetamin/Meth Scrn (Neg) MDMA (Ecstasy) Screen (Neg) U Benzodiazepines Scrn (Neg) Ur Cocaine Metabolite (Neg) U Marijuana (THC) Screen (Neg) Ethyl Alcohol mg/dL < 10.0 (<10.0) mg/dl SARS-CoV-2 (PCR) NEGATIVE (Negative) Medications Administered Lactated Ringer's (Lr) 1,000 mls @ 100 mls/hr IV .Q10H [facility] Stop: 05/26/23 09:29 Last Admin: 04/26/23 09:45 Dose: 80 mls/hr Documented By: CAYLA Magnesium Sulfate/Dextrose (Magnesium Sulfate / D5w) 1 gm in 100 mls @ 50 mls/hr IV ONE ONE Stop: 04/26/23 14:44 Last Admin: 04/26/23 13:17 Dose: 50 mls/hr Documented By: MARY Miscellaneous (Remove Nicoderm Patch) 1 each N/A DAILY@[id number] [facility] Stop: 05/26/23 08:58 Last Admin: 04/26/23 08:17 Dose: 1 each Documented By: CAYLA Nicotine (Nicotine 21 Mg/24 Hr Tdsy) 21 mg TD DAILY [facility] Stop: 05/26/23 08:59 Last Admin: 04/26/23 08:17 Dose: Not Given Documented By: CAYLA Coding Level of Care Code 53719 U Intl Hosp Care Lvl 2 Diagnoses Major depressive disorder, recurrent, moderate F33.1 Intentional overdose T50.902A Suicide attempt T14.91XA
--- NOTE | 2023-04-26 13:40 | Electrocardiogram Report ---
Test Reason : Blood Pressure : / mmHG Vent. Rate : 105 BPM Atrial Rate : 105 BPM P-R Int : 150 ms QRS Dur : 096 ms QT Int : 278 ms P-R-T Axes : 084 091 068 degrees QTc Int : 367 ms Sinus tachycardia Persistent juvenile T wave pattern Otherwise Normal ECG No previous ECGs available Confirmed by Jake Hinkle ([id number]) on 04/26/2023 1:39:44 PM Referred By: REFERRED SELF Confirmed By:Jake Hinkle
--- NOTE | 2023-04-26 13:51 | Electrocardiogram Report ---
Test Reason : Blood Pressure : / mmHG Vent. Rate : 089 BPM Atrial Rate : 089 BPM P-R Int : 168 ms QRS Dur : 094 ms QT Int : 378 ms P-R-T Axes : 074 082 066 degrees QTc Int : 459 ms Normal sinus rhythm Nonspecific T wave abnormality Abnormal ECG When compared with ECG of 25-APR-2023 19:27, (unconfirmed) QT has lengthened Confirmed by Jake Hinkle ([id number]) on 04/26/2023 1:51:05 PM Referred By: REFERRED SELF Confirmed By:Jake Hinkle
[2023-04-26 14:48] LABS: BUN Creatinine Ratio 6.3 (10-20); Calcium 9.1 mg/dl (8.6-10.3); Est GFR (African American) 99.9 ml/min; Est GFR (Non-African American) 86.2 ml/min; Magnesium 2.5 mg/dl (1.7-2.4); Potassium 3.3 mmol/L (3.5-5.1)
--- NOTE | 2023-04-26 15:20 | Electrocardiogram Report ---
Test Reason : Blood Pressure : / mmHG Vent. Rate : 091 BPM Atrial Rate : 091 BPM P-R Int : 162 ms QRS Dur : 082 ms QT Int : 394 ms P-R-T Axes : 076 085 070 degrees QTc Int : 484 ms Normal sinus rhythm Nonspecific T wave abnormality Prolonged QT Abnormal ECG When compared with ECG of 26-APR-2023 10:00, No significant change was found Confirmed by Jake Hinkle ([id number]) on 04/26/2023 3:20:16 PM Referred By: REFERRED SELF Confirmed By:Jake Hinkle
[2023-04-26] MEDS ORDERED: POTASSIUM CHLORIDE CRTAB 20 MEQ TABCR PO STA (15:40)
--- NOTE | 2023-04-26 17:33 | Communication Note ---
Date of Service: April 26, 2023 Patient w/ episode of SVT this afternoon 1411 for about 2 minutes to 140s, was getting IV magnesium Repeat labs for electrolytes were pending at that time and patient w/ some anxiety but resolved once flipped back to NSR reported and has been in the 80s- 90s on monitor. Order to given 40meq PO Kcl supplementation given K 3.3 to keep replete Serial EKGs given QTC 459ms --> 484ms (was 367ms on admit EKG) Serial BMP/Mag as outlined and continued electrolyte replacement as indicated. Poison control notified of qtc prolongation this morning and rec'd for continued monitoring/electrolyte replacement Remains on telemetry
--- NOTE | 2023-04-26 19:17 | Billing Data ---
Date of Service April 26, 2023 Coding Level of Care Code 41732 INT INP/OBS CARE
[2023-04-26 19:40] LABS: BUN Creatinine Ratio 7.3 (10-20); Creatinine Clr Calc Pharmacy 84.1 ml/min; Est GFR (African American) 98.7 ml/min; Est GFR (Non-African American) 85.1 ml/min; Magnesium 2.1 mg/dl (1.7-2.4)
[2023-04-27 01:23] LABS: Calcium 8.7 mg/dl (8.6-10.3); Creatinine Clr Calc Pharmacy 92.8 ml/min; Est GFR (African American) 111.1 ml/min; Est GFR (Non-African American) 95.9 ml/min; Potassium 4.2 mmol/L (3.5-5.1)
[2023-04-27 05:27] LABS: Hematocrit (blood only) 33.5 % (37.0-47.0); Hemoglobin 11.1 g/dl (12.0-16.0); Mean Corpuscular Hemoglobin 29.7 pg (25.0-34.0); Mean Corpuscular Hgb Conc 33.1 g/dL (32.0-36.0); Mean Corpuscular Volume 89.6 fL (80.0-100.0); Mean Platelet Volume 8.9 fL (9.4-12.4); Platelet Count 462 K/uL (130-400); RDW Coefficient of Variation 12.4 % (11.5-14.5); RDW Standard Deviation 40.9 fL (36.4-46.3); Red Blood Count 3.74 M/uL (4.20-5.40); White Blood Count 4.82 K/ul (4.8-10.8)
[2023-04-27 05:43] LABS: Calcium 8.9 mg/dl (8.6-10.3); Magnesium 1.9 mg/dl (1.7-2.4)
[2023-04-27 05:49] LABS: BUN Creatinine Ratio 7.5 (10-20); Creatinine Clr Calc Pharmacy 86.8 ml/min; Est GFR (African American) 102.5 ml/min; Est GFR (Non-African American) 88.5 ml/min
[2023-04-27] MEDS: NICOTINE 21 MG/24 HR TDSY TD SCH (08:15)
--- NOTE | 2023-04-27 10:54 | Communication Note ---
Date of Service: April 27, 2023 Patient is medically cleared for discharge
[2023-04-27] MEDS: LACTATED RINGER'S 1,000 ML IV SCH (11:42)
[2023-04-27 11:48] VITALS: BP 117/76; RESP 16; O2SAT 98
[2023-04-27 15:23] VITALS: PULSE 74
--- NOTE | 2023-04-27 15:58 | Electrocardiogram Report ---
Test Reason : Blood Pressure : / mmHG Vent. Rate : 071 BPM Atrial Rate : 071 BPM P-R Int : 162 ms QRS Dur : 096 ms QT Int : 436 ms P-R-T Axes : 080 084 072 degrees QTc Int : 473 ms Normal sinus rhythm Nonspecific ST abnormality U-waves present; r/o electrolyte imbalance Abnormal ECG When compared with ECG of 26-APR-2023 14:37, ST no longer depressed in Inferior leads Confirmed by Jake Hinkle ([id number]) on 04/27/2023 3:58:17 PM Referred By: REFERRED SELF Confirmed By:Jake Hinkle
--- NOTE | 2023-04-27 16:01 | Electrocardiogram Report ---
Test Reason : Blood Pressure : / mmHG Vent. Rate : 067 BPM Atrial Rate : 067 BPM P-R Int : 162 ms QRS Dur : 096 ms QT Int : 450 ms P-R-T Axes : 070 083 063 degrees QTc Int : 475 ms Normal sinus rhythm Nonspecific ST abnormality Abnormal ECG When compared with ECG of 26-APR-2023 20:50, (unconfirmed) No significant change was found Confirmed by Jake Hinkle ([id number]) on 04/27/2023 4:00:49 PM Referred By: REFERRED SELF Confirmed By:Jake Hinkle
--- NOTE | 2023-04-27 16:06 | Electrocardiogram Report ---
Test Reason : Blood Pressure : / mmHG Vent. Rate : 082 BPM Atrial Rate : 082 BPM P-R Int : 180 ms QRS Dur : 098 ms QT Int : 396 ms P-R-T Axes : 072 079 058 degrees QTc Int : 462 ms Normal sinus rhythm Nonspecific T wave abnormality Prolonged QT Abnormal ECG When compared with ECG of 27-APR-2023 01:49, (unconfirmed) No significant change was found Confirmed by Jake Hinkle ([id number]) on 04/27/2023 4:06:42 PM Referred By: REFERRED SELF Confirmed By:Jake Hinkle
--- NOTE | 2023-04-28 12:28 | Electrocardiogram Report ---
Test Reason : Blood Pressure : / mmHG Vent. Rate : 066 BPM Atrial Rate : 066 BPM P-R Int : 156 ms QRS Dur : 098 ms QT Int : 428 ms P-R-T Axes : 068 082 074 degrees QTc Int : 448 ms Normal sinus rhythm Early repolarization Otherwise Normal ECG When compared with ECG of 27-APR-2023 08:09, No significant change was found Confirmed by Jake Hinkle ([id number]) on 04/28/2023 12:28:28 PM Referred By: REFERRED SELF Confirmed By:Jake Hinkle
--- NOTE | 2023-04-28 17:18 | Discharge Summary ---
Date of Service April 27, 2023 Admission HPI Per Admitting Provider Tali is a 18-year-old woman with past medical history of major depressive disorder (U sustained for in February 2023) who presents to the emergency room after an intentional pill overdose. She reports taking "more than 7 of each" of Lexapro and hydroxyzine at approximately 6 PM this evening. Per [facility] visit note, patient on Lexapro 20 mg, hydroxyzine 50 mg as needed. After consumption of pills, she called 911 and was brought to the emergency room. On admission ROS + nausea, agitation, fatigue, as well as emesis prior to arrival. However, she denies headache, chest pain, heart palpitations, shortness of breath, vision changes, abdominal pain, or hallucinations. In the ED, vitals were notable for mild tachycardia to the 100s. Labs were notable for WBC count of 12.98. Rest of CBC was normal. Electrolytes were stable, within normal limits. Talk screen was negative for acetaminophen, ethanol, and salicylate. She received a 1 L normal saline bolus. ED physician discussed case with [facility] Control [facility] they recommended cardiac monitoring x12 hours before she can be medically cleared. Hospitalist service was then consulted for admission. On admission, ROS + nausea, agitation, fatigue, and an episode of emesis prior to arrival. However, she denies headache, chest pain, heart palpitations, shortness of breath, vision changes, abdominal pain, or hallucinations (audio or visual). Principal Diagnosis SSRI overdose Discharge Exam General: NAD HEENT: Normocephalic, atraumatic. EOM intact. Good conjugate gaze. Nares patent. CV: RRR Respiratory: CTA BL Abdomen: Soft, nondistended abdomen. No bruits heard on auscultation. No tenderness to deep palpation. Extremities: No pedal edema. Neuro: Bilateral lower extremity tremor. Brisk patellar reflex. Psych: Flat affect. Mood congruent with affect. Skin: Clean, dry, and intact. No rashes, bruises, or erythema. Discharge Data Allergies Allergy/AdvReac Type Severity Reaction Status Date / Time No Known Allergies Allergy Unverified 03/16/23 19:13 Consultations 04/25/23 22:42 ED Decision to Admit Stat 04/25/23 23:15 Consult Psychiatry Routine Hospital Course (1) SSRI overdose: 18 F with PMH major depressive disorder (recent U stent 2022) on Lexapro, as needed hydroxyzine who presented to the ED after intentional ingestion of Lexapro and Vistaril pills. Now stable on cardiac telemetry monitoring. Intentional SSRI overdose/hydroxyzine overdose -Time of ingestion ~6 PM. Total number of pills ingested unknown. Per patient on admission, "about 7 of each" referring to home medications (Lexapro 20 mg, Vistaril 50 mg). -NSR on EKG. sinus tachycardia on exam. Mild leukocytosis. No other abnormalities on labs. -Poison Control Center in [place] aware. Recommended continuous cardiac monitoring x12 hours. -Mom aware and en route from [place]. Patient gave verbal consent on admission to provide medical updates to mom. Mom ([place] [phone]). * Admit to med telemetry for continuous cardiac monitoring, as recommended. * Patient treated with the following. * One-to-one observation * Suicide checks per protocol * Lactated Ringers @125 mL/h * Patient was later cleared medically for discharge. * Patient transferred to psych inpatient at outside facility Suicide attempt/major depressive disorder -Currently struggling in school, which is her main stressor. 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 -Recent stay in [facility] in February ("specific and risky suicide plan"). Lexapro increased to 20 mg at discharge from 10 mg. -Unclear who current prescriber is. * Psychiatry consult placed for evaluation, med management as indicated * \\ Current everyday smoker -Uses on nicotine patch daily at home. * Continue TD nicotine patch. (2) Intentional overdose: (3) Suicide attempt: (4) Major depressive disorder, recurrent, moderate: (5) Current smoker: Total Time Total Time Spent Total Time Spent (In Minutes): 32 Discharge Plan Discharge Items Patient Disposition: Transfer Behavioral Health Fac Reason For Visit: INTENTIONAL OVERDOSE Discharge Diagnosis: intentional overdose Activity: Resume your previous activity Non-emergency contact: Primary Care Provider Call non-emergency contact if: you have any medication questions Follow-up/Referrals: PCP,NO [Primary Care Provider] - Diet: Regular Addtl Attending Provider Instructions: will discharge to Behavior health unit Pending Studies at Discharge: Yes Stand-Alone Forms: [facility] Medications and DC Order Prescriptions: Continued hydroxyzine HCl 50 mg tablet 50 mg PO HS PRN (Reason: insomnia or anxiety) nicotine 21 mg/24 hr patch 24 hour 1 patch transdermal DAILY escitalopram oxalate 20 mg tablet 20 mg PO QAM Discharge Orders: Discharge Order (Routine); Ordered 04/27/23 Ordered By: Noé Sanchez Admission Data Admit Date/Time: 04/25/23 23:12 Attending Provider: Noé Sanchez Admit Provider: Cr Butler Primary Care Provider: PCP,NO Other Providers: Tori Maharaj Coding Level of Care Code 02864 INP/OBS DISCH >30 MIN Diagnoses SSRI overdose T43.221A Intentional overdose T50.902A Suicide attempt T14.91XA Major depressive disorder, recurrent, moderate F33.1 Current smoker F17.200
== END 2023-04-27 18:52 | DRG 918 ==
LOC: ED 19:12 → EDINP 23:12 → INTOOBSV 23:12 → SUATTDRO 23:12 → 2W 04-27 00:46
DX: T43.222A Poisoning by selective serotonin reuptake inhibitors, intentional self-harm, initial encounter; F33.1 Major depressive disorder, recurrent, moderate; Z79.899 Other long term (current) drug therapy; T43.592A Poisoning by other antipsychotics and neuroleptics, intentional self-harm, initial encounter; F17.290 Nicotine dependence, other tobacco product, uncomplicated